=== PATIENT | female | born 1975 | race Caucasian/White ===

== ENCOUNTER 2021-09-04 11:07 | Emergency (ER) | payer OTHER ==
[~2021-09-04] VITALS: Ht 157.5 cm; Wt 72.6 kg
[2021-09-04] MEDS ORDERED: ALBUTEROL1.25 MG/3 IH (11:15)
[2021-09-04] MEDS ORDERED: BUDEO.25 IH (11:15)
== END 2021-09-04 14:10 | disposition home or self-care (01) ==
LOC: ER 11:07
DX: U07.1 COVID-19 (principal); B34.9 Viral infection, unspecified